=== PATIENT | female | born 1970 | race Caucasian/White ===

== ENCOUNTER 2025-09-10 13:01 | Emergency (ER) | payer OTHER, SELFPAY ==
[2025-09-10 13:14] VITALS: BP 114/77; PULSE 79; RESP 18; TEMP 37.3; O2SAT 100
--- NOTE | 2025-09-10 13:31 | CRLHL7_ITS ---
For Patients: As a result of the Century Cures Act, medical imaging exams and procedure reports are released immediately into your electronic medical record. You may view this report before your referring provider. If you have questions, please contact your health care provider. INDICATION: Bowel obstruction COMPARISON: None. TECHNIQUE: Upright and supine radiographic view(s) of the abdomen. FINDINGS: No focal abnormally dilated loops of bowel are detected. Moderate colonic stool volume. No pneumoperitoneum. IMPRESSION: No focal abnormally dilated loops of bowel are detected. Moderate colonic stool volume. Dictated by Zak Velazquez MD @ 09/10/2025 2:04:16 PM (Electronically Signed)
--- NOTE | 2025-09-10 13:32 | ED.GENADULT ---
HPI - General Adult General Chief complaint: Abdominal Pain Stated complaint: Bowel obstruction Time Seen by Provider: 09/10/25 13:02 History of Present Illness HPI narrative: Patient is a pleasant 55 white female that is been generally healthy, she takes Synthroid at home. She noticed some nausea and vomiting last night, and has had irregular bowel movements recently but is still passing stool. She had abdominal discomfort last night but it seems much better today. She has had no marked fevers chills rigors, no dysuria, no blood in her stool. The patient has had no bowel obstruction before no abdominal surgery. She presents to to make sure ?I am not backed up?. Related Data Home Medications ?Medication ?Instructions ?Recorded ?Confirmed levothyroxine 100 mcg tablet 100 mcg PO QAM 09/10/25 09/10/25 (Synthroid) Allergies Allergy/AdvReac Type Severity Reaction Status Date / Time amoxicillin Allergy Unknown Verified 09/10/25 13:19 Review of Systems Status of ROS: Reports: 6 or more systems reviewed and unremarkable except as noted in History and below Exam Narrative: Exam Narrative: Objective: Temp 99.2? otherwise vital signs unremarkable In no apparent distress no cyanosis HEENT is unremarkable Patient is alert or x3 Abdomen benign soft mild periumbilical tenderness in lower diffuse abdominal tenderness no real rebound or peritonitis. No palpable mass. Const: Vital Signs, click to edit/add: Vital Signs - 24 hr 09/10/25 13:14 Temperature 99.2 F Pulse Rate [Right Pulse Oximeter] 79 Respiratory Rate 18 Blood Pressure [Ri ght Upper Arm] 114/77 Pulse Oximetry 100 Oxygen Delivery Me thod Room Air Course Vital Signs Vital signs: Initial Vital Signs Temperature 99.2 F 09/10/25 13:14 Temperature Source Temporal Artery Scan 09/10/25 13:14 Pulse Rate 79 09/10/25 13:14 Pulse Rhythm Regular 09/10/25 13:14 Pulse Strength 3+ Normal 09/10/25 13:14 Respiratory Rate 18 09/10/25 13:14 Blood Pressure 114/77 09/10/25 13:14 Blood Pressure Mean 89 09/10/25 13:14 Blood Pressure Position Sitting 09/10/25 13:14 Pulse Oximetry 100 09/10/25 13:14 Oxygen Delivery Method Room Air 09/10/25 13:14 Vital Signs Temperature 99.2 F 09/10/25 13:14 Pulse Rate 79 09/10/25 13:14 Respiratory Rate 18 09/10/25 13:14 Blood Pressure 114/77 09/10/25 13:14 Pulse Oximetry 100 09/10/25 13:14 Oxygen Delivery Method Room Air 09/10/25 13:14 Temperature 99.2 F 09/10/25 13:14 Pulse Rate 79 09/10/25 13:14 Respiratory Rate 18 09/10/25 13:14 Blood Pressure 114/77 09/10/25 13:14 Pulse Oximetry 100 09/10/25 13:14 Oxygen Delivery Method Room Air 09/10/25 13:14 Medical Decision Making MDM Narrative Medical decision making narrative: 55-year-old female with a nausea and vomiting illness now improved had some abdominal pain had vomiting but that is improved, cyst has had irregular bowel movements concerned about constipation or blockage. Will check a flat and upright abdominal film the CBC is CRP and a Chem profile. Discuss differential would include constipation obstipation, bowel obstruction. Her symptoms I do not think are consistent with diverticulitis or other intra-abdominal infectious etiology. Also do not appear suggestive of appendicitis. Addendum to 2:12 p.m.: The patient has flat upper abdominal films show moderate stool no obvious air-fluid levels or obstructive symptoms. Her labs are still pending. I would recommend she try MiraLax a couple times a day for the next 3-4 days until she has regular bowel movements then can go every other day for few days. Recommend a high-fiber diet, fluids, recheck with regular doctor as needed. Of review her labs when they return if these are within normal limits will allow to go home with above-mentioned recommendations. Lab Data Labs: Lab Results 09/10/25 Range/Units 13:40 WBC 9.43 (4.50-11.00) K/uL RBC 5.69 H (4.00-5.20) m/uL Hgb 15.9 (12.0-16.0) gm/dL Hct 48.2 (33.0-51.0) % MCV 85 (80-100) fL MCH 28 (26-34) pg MCHC 33 (32-36) gm/dL RDW Coeff of Clement 12.7 (11.5-15.5) % Plt Count 217 (140-440) K/uL Neut % (Auto) 75.2 H (42.0-72.0) % Lymph % (Auto) 18.0 L (20-44) % [place] % (Auto) 6.5 (0.0-11.0) % Eos % (Auto) 0.1 (0.0-7.0) % Baso % (Auto) 0.1 (0.0-3.0) % Neut # (Auto) 7.10 H (1.7-7.0) K/uL Lymph # (Auto) 1.70 (0.90-2.90) K/uL [place] # (Auto) 0.60 (0.00-0.90) K/UL Eos # (Auto) 0.01 (0.00-0.50) K/uL Baso # (Auto) 0.01 (0.00-0.30) K/uL Abs Immat Gran (auto) 0.01 (0.00-0.30) K/uL Imm/Tot Granulo (auto) 0.1 % Discharge Plan Discharge Clinical Impression: Abdominal pain, Constipation Patient Disposition: Home w/ Parent or Adult Condition: Stable Additional Instructions: Recommend high-fiber diet, MiraLax 1 capful in water twice a day for the next couple of days once bowel movements are moving well then could go to every other day and every 3rd day as desired. Activity Level: No Restrictions Discharge Diet: High Fiber Prescriptions: No Action levothyroxine [Synthroid] 100 mcg tablet 100 mcg PO QAM Stand Alone Forms: MyHealth Info Instructions
[2025-09-10 14:07] LABS: Hematocrit* 48.2 % (33.0-51.0); Hemoglobin* 15.9 gm/dL (12.0-16.0); Immature Granulocytes Abs Auto 0.01 K/uL (0.00-0.30); Immature Granulocytes Pct Auto 0.1 %; Lymphocytes Absolute Auto 1.70 K/uL (0.90-2.90); Mean Corpuscular HGB Conc 33 gm/dL (32-36); Mean Corpuscular Hemoglobin 28 pg (26-34); Mean Corpuscular Volume 85 fL (80-100); RDW Coefficient of Variation % 12.7 % (11.5-15.5); Red Blood Count* 5.69 m/uL (4.00-5.20); White Blood Count* 9.43 K/uL (4.50-11.00)
[2025-09-10 14:13] LABS: Slide Review Reflex No
[2025-09-10 14:22] LABS: Chloride* 98 mmol/L (96-114); Potassium* 3.7 mmol/L (3.6-5.1); Sodium* 138 mmol/L (135-149)
[2025-09-10 14:25] LABS: Blood Urea Nitrogen* 12 mg/dL (7-30); Creatinine* 0.8 mg/dL (0.5-1.5); Estimated Glomerular Filt Rate 88 ml/min
[2025-09-10 14:26] LABS: Anion Gap 13 mEq/L (7-15); Calcium* 9.4 mg/dL (8.4-10.6); Carbon Dioxide* 27 mmol/L (20-32); Glucose* 106 mg/dL (60-115)
== END 2025-09-10 14:41 | disposition home or self-care (01) ==
PROVIDERS: Emergency Provider Family Medicine; PCP Pediatrics
DX: R10.9 Unspecified abdominal pain (principal); K59.00 Constipation, unspecified; Z79.899 Other long term (current) drug therapy
CPT/HCPCS: 36415; 74019; 80048; 85025; 86140; 99284

== ENCOUNTER 2025-09-22 13:11 | Outpatient (CLI) | payer OTHER, SELFPAY | END 2025-09-22 13:12 | disposition home or self-care (01) | LOC: NPINS 13:12 | PROVIDERS: PCP Pediatrics; Visit Provider Pediatrics | DX: E03.9 Hypothyroidism, unspecified (principal) | CPT/HCPCS: 84443 ==